=== PATIENT | female | born 1965 | race Hispanic/Latino ===

== ENCOUNTER 2024-01-14 20:57 | Emergency (ER) | payer OTHER ==
[2024-01-14] MEDS ORDERED: Ondansetron PF 4 MG/2 ML Vial ONE (21:22)
[2024-01-14 21:54] LABS: #Basophils 0.01 10x3/uL (0.0-0.2); #Eosinphils 0.02 10x3/uL (0.0-0.5); #Monocytes 0.24 10x3/uL (0.0-1.1); #Neutrophils 4.46 10x3/uL (1.5-8.4); %Basophils 0.2 % (0.0-2.0); %Eosinophils 0.3 % (0.0-6.0); %Lymphocytes 20.4 % (18.0-47.0); %Neutrophils 74.8 % (40.0-75.0); Hematocrit 39.4 % (34.9-44.5); Hemoglobin 13.3 g/dL (12.0-15.5); Mean Corpuscular HGB CONC 33.8 g/dL (32.0-36.0); Mean Corpuscular Hemoglobin 31.1 pg (27.0-33.0); Mean Corpuscular Volume 92.1 fL (81.6-98.3); Mean Platelet Volume 9.6 fL (7.4-10.4); Platelet Count 215 10x3/uL (150-450); RBC Distribution Width 15.1 % (11.5-14.5); Red Blood Cell (RBC) Count 4.28 10x6/uL (3.90-5.03)
[2024-01-14 22:06] LABS: ALT (SGPT) 26 U/L (8-55); AST (SGOT) 27 U/L (5-34); Albumin 3.9 g/dL (3.5-5.0); Alkaline Phosphatase 60 U/L (40-110); Anion Gap 14 mmol/L (10-20); BUN (Urea Nitrogen) 37 mg/dL (9.8-20.1); Bilirubin, Total 0.7 mg/dL (0.2-1.2); Calc. Creatinine Clearance 0 mL/min (70-130); Calcium 8.8 mg/dL (7.8-10.44); Carbon Dioxide 24 mmol/L (22-29); Chloride 103 mmol/L (98-107); Estimated GFR 85; Globulin 3.6 g/dL (2.4-3.5); Glucose 127 mg/dL (70-105); Lipase 11 U/L (8-78); Potassium 3.3 mmol/L (3.5-5.1); Protein, Total 7.5 g/dL (6.0-8.3); Sodium 138 mmol/L (136-145)
== END 2024-01-14 22:57 | disposition home or self-care (01) ==
LOC: CSHERS 20:57
DX: R11.2 Nausea with vomiting, unspecified (principal); R19.7 Diarrhea, unspecified; I10 Essential (primary) hypertension
CPT/HCPCS: 80053; 83690; 85025; 96361; 96374; J2405

== ENCOUNTER 2024-08-25 10:28 | Emergency (ER) | payer BC ==
[2024-08-25] MEDS ORDERED: Ibuprofen 200 MG TAB ONE (11:18)
== END 2024-08-25 12:15 | disposition home or self-care (01) ==
LOC: CSHERS 10:28
DX: J10.1 Influenza due to other identified influenza virus with other respiratory manifestations (principal); I10 Essential (primary) hypertension
CPT/HCPCS: 87428

== ENCOUNTER 2024-08-25 22:49 | Emergency (ER) | payer BC ==
[2024-08-25] MEDS ORDERED: Ibuprofen 200 MG TAB ONE (23:08)
== END 2024-08-25 23:22 | disposition home or self-care (01) ==
LOC: CSHERS 22:49
DX: J10.1 Influenza due to other identified influenza virus with other respiratory manifestations (principal); I10 Essential (primary) hypertension; Z79.899 Other long term (current) drug therapy
CPT/HCPCS: 87428; 99283; 99284